=== PATIENT | male | born 1995 | race Caucasian/White ===

== ENCOUNTER 2016-08-20 15:08 | Inpatient (IN) | payer OTHER ==
[~2016-08-20] VITALS: Ht 170.2 cm; Wt 62.2 kg
[2016-08-20 16:45] LABS: UA SPECIFIC GRAVITY 1.025 (1.005-1.035); microscopic required? YES; urine erythrocyte 3+ (NEGATIVE)
[2016-08-20 17:02] LABS: RED CELL DISTRIBUTION WIDTH 13.8 % (11.5-14.5)
[2016-08-20 17:12] LABS: PLATELET COUNT 359 x10^3mcL (130-400)
[2016-08-20 18:02] LABS: CALCIUM 9.5 mg/dL (8.5-10.1); CARBON DIOXIDE 28.2 mmol/L (21-32); CHLORIDE SERUM 97 mmol/L (98-107); GFR1 > 60 mL/min; GLUCOSE SERUM 93 mg/dL (74-106); POTASSIUM SERUM 3.1 mmol/L (3.5-5.1); SODIUM SERUM 134 mmol/L (136-145)
[2016-08-20 18:06] LABS: BAND NEUTROPHIL 11 % (0-10); BASOPHIL 0 % (0-2); MONOCYTE 8 % (0-7); PLATELET MORPHOLOGY PLATELETS NORMAL; SEGMENTED NEUTROPHILS 71 % (37-75)
[2016-08-20 18:06] LABS: ALBUMIN 4.1 g/dL (3.4-5.0); ALKALINE PHOSPHATASE 119 U/L (46-116); ALT/SGPT 18 U/L (16-63); AST/SGOT 17 U/L (15-37); BILIRUBIN TOTAL 0.9 mg/dL (0.20-1.00); LIPASE 87 IU/L (73-393); TOTAL PROTEIN, SERUM 8.3 g/dL (6.4-8.2)
[2016-08-20 21:22] VITALS: BP 129/63
[2016-08-20 21:27] VITALS: Ht 170.2 cm; Wt 62.2 kg
[2016-08-20 21:36] LABS: T3 TOTAL 1.23 ng/mL
[2016-08-20 21:38] LABS: FREE T4 1.27 ng/dL (0.76-1.46); FREE THYROXINE INDEX 2.8 ug/dL (1.4-4.5); T4(THYROXINE) 8.7 ug/dL (4.7-13.3)
[2016-08-20 21:39] LABS: CHOLESTEROL/HDL RATIO 2.4
[2016-08-20 23:57] LABS: AMPHETAMINE QUAL UR POSITIVE (NEG <=1000)
[2016-08-21 05:30] VITALS: BP 101/57
[2016-08-21 07:58] VITALS: BP 116/66
[2016-08-21 11:24] LABS: BASOPHIL % 0.4 % (0-2); PLATELET COUNT 279 x10^3mcL (130-400); RED CELL DISTRIBUTION WIDTH 13.8 % (11.5-14.5)
[2016-08-21 11:42] LABS: CALCIUM 8.6 mg/dL (8.5-10.1); CARBON DIOXIDE 28.4 mmol/L (21-32); CHLORIDE SERUM 100 mmol/L (98-107); CREATININE SERUM 0.9 mg/dL (0.7-1.3); GFR1 > 60 mL/min; GLUCOSE SERUM 85 mg/dL (74-106); POTASSIUM SERUM 3.7 mmol/L (3.5-5.1); SODIUM SERUM 134 mmol/L (136-145)
[2016-08-21 12:50] VITALS: BP 113/53
[2016-08-21 17:20] VITALS: BP 120/78
[2016-08-21 20:30] VITALS: BP 107/63
[2016-08-22 06:13] VITALS: BP 109/61
[2016-08-22 06:59] LABS: CALCIUM 8.6 mg/dL (8.5-10.1); CHLORIDE SERUM 105 mmol/L (98-107); CREATININE SERUM 0.9 mg/dL (0.7-1.3); GFR1 > 60 mL/min; GLUCOSE SERUM 83 mg/dL (74-106); MAGNESIUM 2.2 mg/dL (1.8-2.4); POTASSIUM SERUM 3.6 mmol/L (3.5-5.1); SODIUM SERUM 141 mmol/L (136-145)
[2016-08-22 07:18] LABS: PLATELET COUNT 263 x10^3mcL (130-400); RED CELL DISTRIBUTION WIDTH 13.7 % (11.5-14.5)
[2016-08-22 09:14] VITALS: BP 93/57
[2016-08-22 10:06] LABS: BAND NEUTROPHIL 12 % (0-10); BASOPHIL 0 % (0-2); MONOCYTE 11 % (0-7); SEGMENTED NEUTROPHILS 49 % (37-75)
[2016-08-22 14:15] VITALS: BP 98/55
[2016-08-22 17:40] VITALS: BP 96/62
[2016-08-22 21:19] VITALS: BP 107/58
[2016-08-23 05:34] VITALS: BP 131/78
[2016-08-23 08:00] VITALS: BP 118/63
== END 2016-08-23 08:45 | disposition left against medical advice (07) | DRG 727 ==
LOC: ED 15:08 → DU 20:40 → MU 08-22 09:25
PROVIDERS: Emergency Medicine; Family Medicine; ADMIT Family Medicine
DX: N45.1 Epididymitis (principal); N17.0 Acute kidney failure with tubular necrosis; I10 Essential (primary) hypertension; R80.8 Other proteinuria; E87.6 Hypokalemia; N45.2 Orchitis
CPT/HCPCS: 80307; 84439; 87491; 87591; J0696; J1956; J2270; J2405; J2543; J7030; Q0092; Q9967